=== PATIENT | male | born 1960 | race African-American/Black ===

== ENCOUNTER 2023-05-17 12:27 | Emergency (ER) | payer SELFPAY ==
[2023-05-17 12:35] VITALS: BP 166/93; PULSE 99; RESP 20; TEMP 36.8; O2SAT 99
--- NOTE | 2023-05-17 13:14 | ED.GENADUL_ITS ---
Discharge Plan Disposition Patient Disposition: Home Condition: Stable Discharge Details Clinical Impression: Pain of left lateral upper thigh Primary Care Provider: Unknown,Unknown ED Provider: Odell Salas Home Meds and New Rx's Prescriptions: Continued metformin 500 mg tablet 500 mg PO BID ibuprofen [Advil] 200 mg tablet 200 mg PO TID-QID PRN Discharge Instructions Instructions: Leg Pain (ED) Additional Instructions: Please take acetaminophen (tylenol) - 650mg every 6 hours by mouth as needed for pain. Please contact your primary care physician to arrange follow-up. Be sure to discuss your elevated blood pressure with your doctor. Return to the ER immediately for any worsening or new concerning symptoms. Medical Decision Making 63-year-old male here with pain in his left anterior lateral thigh with area of ecchymosis and a feeling of heaviness in his leg. No posterior lower leg pain or swelling. No calf tenderness. Exam is not consistent with DVT. Consider superficial venous thrombus. Plan for massage and anti-inflammatory. Usual customary discharge instructions reviewed with the patient. Patient was instructed to follow-up with his PCP regarding elevated blood pressure. HPI General Mode of arrival: ambulatory . Date/Time Provider Initiated Documentation: 05/17/23 12:41 . Limitations to Documentation: no limitations . Information obtained by: patient . HPI Narrative: 63-year-old male presents with chief complaint of left leg discomfort. Patient notes left leg pain for the past 4 to 5 days. Pain is localized to his lateral anterior left thigh. He notes some associated heaviness in his leg with ambulation. He thinks it may be related to wearing winter boots. He denies associated swelling. No numbness or tingling. Related Data Home Medications Medication Instructions Recorded Confirmed ibuprofen 200 mg tablet (Advil) 200 mg PO TID-QID PRN 05/17/23 05/17/23 metformin 500 mg tablet 500 mg PO BID 05/17/23 05/17/23 Allergies Allergy/AdvReac Type Severity Reaction Status Date / Time No Known Allergies Allergy Unverified 05/17/23 12:42 General Stated Complaint: GenMedical ALICIA: 3 PFSH All Active Problems Pain of left lateral upper thigh (Acute) Social History Smoking/Tobacco Use Status: Never Smoking risk assessment performed?: Yes Substance use type: does not use Exam Const General: cooperative and no acute distress HENMT Mouth: moist mucous membranes Eyes Conjunctivae: normal conjunctivae Sclera: normal sclerae Resp Auscultation: clear to auscultation bilaterally, no rales, no rhonchi and no wheezes Cardio Rate: regular rate and not tachycardic Rhythm: regular rhythm GI Palpation: soft, not firm, no guarding, no masses, not rigid and nontender Back/Spine/Pelvis Thoracic/Lumbar Spine: thoracic and lumbar spine normal to inspection, No thoracic spinal tenderness and No lumbar spinal tenderness Skin General skin exam: no rashes or lesions noted Neuro General: patient alert, patient awake and tone normal Cognition: normal cognition Motor: strength 5/5 throughout Sensory Exam: no sensory deficits noted Extrem General: no edema Left lower extremity: hip/thigh Details: tenderness Location: of the mid upper leg (Anterior lateral), normal ROM and ecchymosis (Subtle ecchymosis anterior lateral and area of tenderness); no swelling, no deformity and no unusual warmth, lower leg Details: no edema; no tenderness, no localized swelling and no palpable cords and foot Details: normal capillary refill and normal to inspection Psych Appearance: grossly normal Mental Status: mental status grossly normal Speech and Movement: speech and movement normal Course Vital Signs Vital signs: Vital Signs Temperature 36.8 C 05/17/23 12:35 Pulse 99 H 05/17/23 12:35 Respiratory Rate 20 05/17/23 12:35 Blood Pressure 166/93 H 05/17/23 12:35 Pulse Oximetry 99 05/17/23 12:35 Temperature 36.8 C 05/17/23 12:35 Pulse 99 H 05/17/23 12:35 Respiratory Rate 20 05/17/23 12:35 Respiratory Effort Normal 05/17/23 12:45 Respiratory Depth Normal 05/17/23 12:45 Respiratory Pattern Normal 05/17/23 12:45 Blood Pressure 166/93 H 05/17/23 12:35 Blood Pressure Position Sitting 05/17/23 12:35 Pulse Oximetry 99 05/17/23 12:35 Oxygen Delivery Method Room Air 05/17/23 12:35 Oxygen Flow Rate 0 05/17/23 12:35 Pain Level 3 05/17/23 12:35
[2023-05-17] MEDS: Acetaminophen 500 MG TAB PO (13:21)
== END 2023-05-17 13:22 | disposition home or self-care (01) ==
PROVIDERS: Emergency Provider Student in an Organized Health Care Education/Training Program
DX: M79.652 Pain in left thigh (principal)
CPT/HCPCS: 99282; 99283

== ENCOUNTER 2024-03-08 16:38 | Emergency (ER) | payer SELFPAY ==
--- NOTE | 2024-03-08 16:30 | RT.EKG_ITS ---
APPROVED REPORT Exam: Resting ECG Reason for Exam: dizzy/weak Patient Location: E HR:102 bpm ECG Measurements Heart Rate 102 AXIS WA 197 P 78 QRSd 74 QRS 80 QT 307 T 55 QTc 399 Conclusion Sinus tachycardia, rate 102 ST segment elevation V2, likely within normal range for amplitude, no significant contiguous changes
[2024-03-08 16:43] VITALS: BP 158/90; PULSE 104; RESP 10; TEMP 36.6; O2SAT 96
--- NOTE | 2024-03-08 17:30 | DI.RAD_ITS ---
Exam(s) XR CHEST 2V PA LATERAL EXAM: XR CHEST 2V PA LATERAL CLINICAL HISTORY: fever TECHNIQUE: 2D digital imaging was performed. Two views. COMPARISON: No exams were available for comparison FINDINGS: HEART: Normal size. Aorta: Not dilated. PULMONARY VASCULATURE: Normal. MEDIASTINUM: Unremarkable. LUNGS: Clear. PLEURAL SPACE: No pleural effusion or pneumothorax. BONE:Unremarkable for age. SOFT TISSUES: Unremarkable. IMPRESSION: No acute abnormality. DATA REPOSITORY: RADIATION DOSE DELIVERED:
[2024-03-08 18:04] LABS: Abs Immature Grans 0.03 10^3/uL (0.0-0.06); Absolute Basophil Count 0.06 10^3/uL (0.0-0.2); Absolute Eosinophil Count 0.05 10^3/uL (0.0-0.7); Absolute Lymphocyte Count 4.68 10^3/uL (1.2-3.4); Absolute Neutrophil Count 5.71 10^3/uL (1.2-6.7); Basophils % 0.5 %; Eosinophils % 0.4 %; HCT 38.6 % (40.0-50.0); HGB 12.7 g/dL (13.5-17.5); Immature Grans % 0.3 %; Lymphocytes % 41.3 %; MCH 27.4 pg (27.0-33.0); MCHC 32.9 % (32.0-36.0); MCV 83 fL (80-95); MPV 9.2 fL (8.0-11.0); Monocytes % 7.1 %; Neutrophils % 50.4 %; Platelet Count 393 10^3/uL (130-400); RBC 4.64 10^6/uL (4.36-5.78); RDW 13.9 % (11.8-14.1); WBC 11.33 10^3/uL (4.4-10.8)
[2024-03-08 18:15] VITALS: TEMP 36.6
[2024-03-08] MEDS: Acetaminophen 500 MG TAB 1000 MG PO (18:15)
[2024-03-08] MEDS: Normal Saline 1,000 ML 1000 ML IV ×2 (18:15→20:03)
[2024-03-08 18:23] LABS: ALT 27 U/L (16-63); AST 16 U/L (15-37); Albumin 3.9 g/dL (3.4-5.0); Alkaline Phosphatase 56 U/L (46-116); Anion Gap 11.4 mmol/L (3-11); BUN 24 mg/dL (7-18); Bilirubin, Total 0.52 mg/dL (0.2-1.0); CO2 27.6 mmol/L (21.0-32.0); CREATININE 1.4 mg/dL (0.70-1.30); Calcium 9.5 mg/dL (8.5-10.1); Chloride 98 mmol/L (98-107); Estimated GFR 56.13 (mL/min/1.73m2); Glucose 151 mg/dL (74-106); Magnesium 2.2 mg/dL (1.8-2.4); Potassium 3.7 mmol/L (3.5-5.1); Sodium 137 mmol/L (136-145); Total Protein 8.2 g/dL (6.4-8.2); Troponin I < 50 ng/L (< or =60)
--- NOTE | 2024-03-08 18:23 | DI.CT_ITS ---
Exam(s) CT HEAD WO EXAM: CT HEAD WO CLINICAL HISTORY: headache, fever. TECHNIQUE: Imaging Protocol: Axial computed tomography images with coronal and sagittal reformatted images were created and reviewed COMPARISON: No exams were available for comparison FINDINGS: Ventricles and Extra axial spaces: Normal in size and morphology for the patient's age. Hemorrhage: None. Cerebral parenchyma: No evidence of acute infarct or mass. White matter changes of small vessel dis ease. Midline shift: None. Brainstem/Cerebellum: Normal. Calvarium: Normal. Visualized Paranasal sinuses:Opacification of the right maxillary sinus. Mastoids: Clear. Soft Tissues: Unremarkable. ORBITS: Unremarkable. PITUITARY: Not enlarged. IMPRESSION: No acute intracranial process. RADIATION DOSE DELIVERED: Total DLP DATA REPOSITORY: All CT scans at this facility are submitted to the National Radiology Data Registry (NRDR) Dose Index Registry (DIR) with the [employer] ([employer]). RADIATION OPTIMIZATION: All CT scans at this facility use at least one of these dose optimization te chniques: automated exposure control; mA and/or kV adjustment per patient size (includes targeted exa ms where dose is matched to clinical indication); or iterative reconstruction.
[2024-03-08 18:28] LABS: TSH (W/Ref FT4) 2.77 uIU/mL (0.36-3.74)
[2024-03-08 18:29] LABS: Bilirubin Negative (Negative); Blood Trace-intact (Negative); Clarity Clear (Clear); Glucose Negative (Negative); Ketones Negative (Negative); Leukocyte Esterase Negative (Negative); Nitrite Negative (Negative); Specific Gravity >= 1.030 (1.005-1.025); Urobilinogen 0.2 mg/dL (Up to 0.2); pH 5.5 (5-8)
[2024-03-08 18:36] LABS: Bacteria Rare HPF (Negative); Casts 0-2 Hyaline LPF (Negative); Crystals Negative HPF (Negative); Epithelial Cells Negative HPF (Negative); Mucus Trace (Negative); RBC 0-2 HPF (0-2); WBC 0-2 HPF (0-5)
[2024-03-08 18:37] LABS: C & S Indicated? No
[2024-03-08 18:53] LABS: Procalcitonin < 0.1 ng/mL
[2024-03-08 19:00] LABS: COVID-19 PCR Negative (Negative); Influenza A PCR Negative (Negative); Influenza B PCR Negative (Negative); RSV PCR Negative (Negative); Source Nasopharynx
[2024-03-08] MEDS: Ketorolac 15 MG/ML VIAL 7.5 MG IVP (20:02)
--- NOTE | 2024-03-08 21:34 | ED.GENADUL_ITS ---
Discharge Plan Disposition Patient Disposition: Home Condition: Stable Discharge Details Clinical Impression: Fever Primary Care Provider: Unknown,Unknown ED Provider: Layne العلي Home Meds and New Rx's Prescriptions: New doxycycline hyclate 100 mg capsule 100 mg PO BID Qty: 20 0RF Continued metformin 500 mg tablet 1,000 mg PO BID ibuprofen [Advil] 200 mg tablet 200 mg PO TID-QID PRN losartan 100 mg tablet 100 mg PO DAILY Discharge Instructions Instructions: Fever, Adult (DC) Additional Instructions: Take the antibiotic as prescribed take Motrin 400 mg every 8 hours as needed for fever and headache Take Tylenol every hours for fever and pain your temperature today was 100.9 take the week off from work to rest 8, 8 oz glasses of water daily recheck in 48 hours return earlier with new or worsening complaints HPI General Date/Time Provider Initiated Documentation: 03/08/24 16:44 . HPI Narrative: This 64-year-old gentleman presents with report of lightheadedness, intermittent chills for the past several days. 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 Has been in [place] since October when he returned from [place]. He does not have a local primary care physician but his medications are refilled by his doctor in [place]. Patient denies any stiff neck. He was bitten by a tick approximately a month ago and tested shortness of breath or chest pain. He has not taken his temperature at home. He denies any urinary symptoms or significant cough. He denies any abdominal pain or nausea or vomiting. He denies known sick contacts. Denies tobacco, alcohol, or illicit substances. Related Data Home Medications ?Medication ?Instructions ?Recorded ?Confirmed ibuprofen 200 mg tablet (Advil) 200 mg PO TID-QID PRN 05/17/23 03/08/24 metformin 500 mg tablet 1,000 mg PO BID 05/17/23 03/08/24 doxycycline hyclate 100 mg capsule 100 mg PO BID #20 caps 03/08/24 losartan 100 mg tablet 100 mg PO DAILY 03/08/24 03/08/24 Previous Rx's ?Medication ?Instructions ?Recorded doxycycline hyclate 100 mg capsule 100 mg PO BID #20 caps 03/08/24 Allergies Allergy/AdvReac Type Severity Reaction Status Date / Time No Known Allergies Allergy Unverified 03/08/24 16:50 General Stated Complaint: Dizzy/Sync ALICIA: 3 Exam Narrative Exam Narrative: Alert and oriented 64-year-old male no acute distress without meningismus, oropharynx patent, uvula midline, pupils equal round react light. No respiratory distress, lungs clear to auscultation, cardiac rate rhythm regular, no murmurs or rubs no abdominal tenderness alert and oriented x 4, no peripheral edema, distal pulses intact Course Vital Signs Vital signs: Vital Signs Temperature 36.6 C 03/08/24 16:43 Pulse 104 H 03/08/24 16:43 Respiratory Rate 10 L 03/08/24 16:43 Blood Pressure 158/90 H 03/08/24 16:43 Pulse Oximetry 96 03/08/24 16:43 Temperature 36.6 C 03/08/24 18:15 Temperature Source Skin 03/08/24 16:43 Pulse 104 H 03/08/24 16:43 Respiratory Rate 10 L 03/08/24 16:43 Respiratory Effort Normal, Non-Labored 03/08/24 17:25 Blood Pressure 158/90 H 03/08/24 16:43 Blood Pressure Position Sitting 03/08/24 16:43 Pulse Oximetry 96 03/08/24 16:43 Oxygen Delivery Method Room Air 03/08/24 16:43 Oxygen Flow Rate 0 03/08/24 16:43 Pain Level 5 03/08/24 20:02 Lab/Test Results Lab/Test Results: 03/08/24 18:00 Blood Blood Culture - Pending 03/08/24 17:55 Blood Blood Culture - Pending Laboratory Tests Range/Units 03/08/24 03/08/24 03/08/24 17:55 18:02 18:14 WBC (4.4-10.8) 10^3/uL 11.33 H RBC (4.36-5.78) 10^6/uL 4.64 Hgb (13.5-17.5) g/dL 12.7 L Hct (40.0-50.0) % 38.6 L MCV (80-95) fL 83 MCH (27.0-33.0) pg 27.4 MCHC (32.0-36.0) % 32.9 RDW (11.8-14.1) % 13.9 Plt Count (130-400) 10^3/uL 393 MPV (8.0-11.0) fL 9.2 Immature Gran % % 0.3 Neutrophils % % 50.4 Lymphocytes % % 41.3 Monocytes % % 7.1 Eosinophils % % 0.4 Basophils % % 0.5 Nucleated RBC % (0.0-0.3) % 0.0 Absolute Neutrophils (1.2-6.7) 10^3/uL 5.71 Absolute Lymphocytes (1.2-3.4) 10^3/uL 4.68 H Absolute Monocytes (0.1-0.8) 10^3/uL 0.80 Absolute Eosinophils (0.0-0.7) 10^3/uL 0.05 Absolute Basophils (0.0-0.2) 10^3/uL 0.06 VBG Lactate Sodium (136-145) mmol/L 137 Potassium (3.5-5.1) mmol/L 3.7 Chloride (98-107) mmol/L 98 Carbon Dioxide (21.0-32.0) mmol/L 27.6 Anion Gap (3-11) mmol/L 11.4 H BUN (7-18) mg/dL 24 H Creatinine (0.70-1.30) mg/dL 1.4 H Est GFR (CKD-EPI 2020) (mL/min/1.73m2) 56.13 Glucose (74-106) mg/dL 151 H Calcium (8.5-10.1) mg/dL 9.5 Magnesium (1.8-2.4) mg/dL 2.2 Total Bilirubin (0.2-1.0) mg/dL 0.52 AST (15-37) U/L 16 ALT (16-63) U/L 27 Alkaline Phosphatase (46-116) U/L 56 Troponin I (< or =60) ng/L < 50 Total Protein (6.4-8.2) g/dL 8.2 Albumin (3.4-5.0) g/dL 3.9 Procalcitonin ng/mL < 0.1 TSH (0.36-3.74) uIU/mL 2.77 Urine Color (Yellow) Yellow Urine Clarity (Clear) Clear Urine pH (5-8) 5.5 Ur Specific [place] (1.005-1.025) >= 1.030 H Urine Protein (Neg-Trace) mg/dL Trace Urine Ketones (Negative) mg/dL Negative Urine Blood (Negative) Trace-intact H Urine Nitrite (Negative) Negative Urine Bilirubin (Negative) Negative Urine Urobilinogen (Up to 0.2) mg/dL 0.2 Ur Leukocyte Esterase (Negative) Negative Urine RBC (0-2) HPF 0-2 Urine WBC (0-5) HPF 0-2 Ur Epithelial Cells (Negative) HPF Negative Urine Crystals (Negative) HPF Negative Urine Bacteria (Negative) HPF Rare Urine Casts (Negative) LPF 0-2 Hyaline Urine Mucus (Negative) Trace Ur Culture Indicated? No Urine Glucose (Negative) mg/dL Negative COVID-19 Source Nasopharynx SARS-CoV-2 (PCR) (Negative) Negative Influenza Type A (PCR) (Negative) Negative Influenza Type B (PCR) (Negative) Negative RSV (PCR) (Negative) Negative Range/Units 03/08/24 03/08/24 18:20 19:17 WBC (4.4-10.8) 10^3/uL RBC (4.36-5.78) 10^6/uL Hgb (13.5-17.5) g/dL Hct (40.0-50.0) % MCV (80-95) fL MCH (27.0-33.0) pg MCHC (32.0-36.0) % RDW (11.8-14.1) % Plt Count (130-400) 10^3/uL MPV (8.0-11.0) fL Immature Gran % % Neutrophils % % Lymphocytes % % Monocytes % % Eosinophils % % Basophils % % Nucleated RBC % (0.0-0.3) % Absolute Neutrophils (1.2-6.7) 10^3/uL Absolute Lymphocytes (1.2-3.4) 10^3/uL Absolute Monocytes (0.1-0.8) 10^3/uL Absolute Eosinophils (0.0-0.7) 10^3/uL Absolute Basophils (0.0-0.2) 10^3/uL VBG Lactate Cancelled 2.0 H Sodium (136-145) mmol/L Potassium (3.5-5.1) mmol/L Chloride (98-107) mmol/L Carbon Dioxide (21.0-32.0) mmol/L Anion Gap (3-11) mmol/L BUN (7-18) mg/dL Creatinine (0.70-1.30) mg/dL Est GFR (CKD-EPI 2020) (mL/min/1.73m2) Glucose (74-106) mg/dL Calcium (8.5-10.1) mg/dL Magnesium (1.8-2.4) mg/dL Total Bilirubin (0.2-1.0) mg/dL AST (15-37) U/L ALT (16-63) U/L Alkaline Phosphatase (46-116) U/L Troponin I (< or =60) ng/L Total Protein (6.4-8.2) g/dL Albumin (3.4-5.0) g/dL Procalcitonin ng/mL TSH (0.36-3.74) uIU/mL Urine Color (Yellow) Urine Clarity (Clear) Urine pH (5-8) Ur Specific [place] (1.005-1.025) Urine Protein (Neg-Trace) mg/dL Urine Ketones (Negative) mg/dL Urine Blood (Negative) Urine Nitrite (Negative) Urine Bilirubin (Negative) Urine Urobilinogen (Up to 0.2) mg/dL Ur Leukocyte Esterase (Negative) Urine RBC (0-2) HPF Urine WBC (0-5) HPF Ur Epithelial Cells (Negative) HPF Urine Crystals (Negative) HPF Urine Bacteria (Negative) HPF Urine Casts (Negative) LPF Urine Mucus (Negative) Ur Culture Indicated? Urine Glucose (Negative) mg/dL COVID-19 Source SARS-CoV-2 (PCR) (Negative) Influenza Type A (PCR) (Negative) Influenza Type B (PCR) (Negative) RSV (PCR) (Negative) Medical Decision Making 64-year-old male in no acute distress presents mild tachycardia initially fever, 100.9 patient does not appear systemically ill. He has mild leukocytosis, 11,000, gap of 11.4, BUN of 24 and creatinine 1.4 no prior to compare. Chest x- ray without acute abnormality per radiology interpretation reviewed. Urinalysis without evidence of acute infection. Flu, COVID, RSV negative. Will treat patient with doxycycline pending tick panel and blood cultures. He is stable for discharge home at this time. He will certainly notify any test abnormalities given very low threshold to return to get any worsening complaints. pt ambulatory and well appearing at time of dc home. Quality:SDOH Health Related Social Needs: No Data to Display PFSH All Active Problems (Updated 03/08/24 @ 20:46 by NEWTON Phipps) Fever (Acute) Social History Smoking/Tobacco Use Status: Never Smoking risk assessment performed?: Yes Alcohol Intake: never Substance use type: does not use
[2024-03-08 21:55] LABS: Lactate 1.9 mmol/L (0.6-1.4)
[2024-03-08 22:19] VITALS: BP 168/95; PULSE 94; RESP 20; TEMP 37; O2SAT 98
[2024-03-08] MEDS: Doxycycline Hyclate 100 MG, 2 CAPS/BTL PO (22:23)
[2024-03-08 22:25] VITALS: BP 168/95; PULSE 94; RESP 20; TEMP 37; O2SAT 98
[2024-03-10 15:54] LABS: Lyme Ab w Rflx to Lyme Confirm Negative (Negative)
[2024-03-12 15:18] LABS: Anaplasma phagocytophilum Negative (Negative); B. miyamotoi PCR Negative (Negative); Babesia divergens/MO-1 Negative (Negative); Babesia duncani Negative (Negative); Babesia microti Negative (Negative); Ehrlichia chaffeensis Negative (Negative); Ehrlichia ewingii/canis Negative (Negative); Ehrlichia muris eauclairensis Negative (Negative)
== END 2024-03-08 22:25 | disposition home or self-care (01) ==
PROVIDERS: Emergency Provider Physician Assistant
DX: R50.9 Fever, unspecified (principal); R42 Dizziness and giddiness
CPT/HCPCS: 36415; 80053; 84145; 87040; 87637; 87798; 93005; 96361; 96374; 99285; 70450; 71046; 81003; 81015; 83605; 83735; 84443; 84484; 85025; 86618; 93010; 99284; J1885

== ENCOUNTER 2024-03-15 14:00 | Outpatient (REF) | payer SELFPAY ==
[2024-03-15 16:05] LABS: COMMENT (LAB VIEW ONLY) 161.96 mg/dL
== END 2024-03-15 14:01 | disposition home or self-care (01) ==
LOC: NCHCN 14:00
PROVIDERS: PCP Student in an Organized Health Care Education/Training Program; Visit Provider Student in an Organized Health Care Education/Training Program
DX: E11.9 Type 2 diabetes mellitus without complications (principal)
CPT/HCPCS: 82043; 82570

== ENCOUNTER 2024-11-23 11:27 | Outpatient (REF) | payer SELFPAY ==
[2024-11-23 16:36] LABS: COMMENT (LAB VIEW ONLY) 171.93 mg/dL; Microalb ug/mg Crea 44.7 ug/mg Cr
== END 2024-11-23 11:28 | disposition home or self-care (01) ==
LOC: NCHCN 11:27
PROVIDERS: PCP Student in an Organized Health Care Education/Training Program; Visit Provider Student in an Organized Health Care Education/Training Program
DX: E11.9 Type 2 diabetes mellitus without complications (principal)
CPT/HCPCS: 82043; 82570

== ENCOUNTER 2024-12-14 12:00 | Outpatient (REF) | payer SELFPAY ==
[2024-12-14 16:10] LABS: ALT 34 U/L (16-63); AST 26 U/L (15-37); Albumin 4.3 g/dL (3.4-5.0); Alkaline Phosphatase 65 U/L (46-116); Anion Gap 10.9 mmol/L (3-11); BUN 17 mg/dL (7-18); Bilirubin, Total 0.4 mg/dL (0.2-1.0); CO2 28.1 mmol/L (21.0-32.0); Calcium 9.6 mg/dL (8.5-10.1); Chloride 104 mmol/L (98-107); Estimated GFR 84.05 (mL/min/1.73m2); Glucose 120 mg/dL (74-106); Potassium 4.3 mmol/L (3.5-5.1); Sodium 143 mmol/L (136-145); Total Protein 7.8 g/dL (6.4-8.2)
== END 2024-12-14 12:01 | disposition home or self-care (01) ==
LOC: NCHCN 12:00
PROVIDERS: PCP Student in an Organized Health Care Education/Training Program; Visit Provider Student in an Organized Health Care Education/Training Program
DX: I10 Essential (primary) hypertension (principal)
CPT/HCPCS: 80053